=== PATIENT | female | born 1995 | race Asian ===

== ENCOUNTER 2016-09-18 10:11 | Emergency (ER) | payer SELFPAY ==
[2016-09-18 12:11] VITALS: BP 122/74
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
== END 2016-09-18 12:08 | disposition home or self-care (01) ==
LOC: ED 10:11
DX: S00.93XA Contusion of unspecified part of head, initial encounter (principal); W22.8XXA Striking against or struck by other objects, initial encounter; Y93.9 Activity, unspecified; Y92.9 Unspecified place or not applicable
CPT/HCPCS: 99281